=== PATIENT | female | born 1945 | race African-American/Black ===

== ENCOUNTER 2024-11-09 10:17 | Emergency (ER) | payer OTHER ==
[2024-11-09 10:59] LABS: #Basophils 0.03 10x3/uL (0.0-0.2); #Monocytes 0.39 10x3/uL (0.0-1.1); #Neutrophils 1.65 10x3/uL (1.5-8.4); %Basophils 0.6 % (0.0-2.0); %Eosinophils 4.2 % (0.0-6.0); %Lymphocytes 52.1 % (18.0-47.0); %Monocytes 8.2 % (0.0-10.0); %Neutrophils 34.7 % (40.0-75.0); Hematocrit 35.9 % (34.9-44.5); Hemoglobin 11.8 g/dL (12.0-15.5); Mean Corpuscular HGB CONC 32.9 g/dL (32.0-36.0); Mean Corpuscular Hemoglobin 29.5 pg (27.0-33.0); Mean Corpuscular Volume 89.8 fL (81.6-98.3); Mean Platelet Volume 9.9 fL (7.4-10.4); Platelet Count 236 10x3/uL (150-450); RBC Distribution Width 14.2 % (11.5-14.5); White Blood Cell (WBC) Count 4.76 10x3/uL (3.5-10.5)
[2024-11-09 11:26] LABS: ALT (SGPT) 14 U/L (Less than 34); AST (SGOT) 27 U/L (11-34); Albumin 3.9 g/dL (3.1-4.5); Alkaline Phosphatase 74 U/L (40-110); Anion Gap 11 mmol/L (10-20); BUN (Urea Nitrogen) 13 mg/dL (9.8-20.1); Bilirubin, Total 0.4 mg/dL (0.3-1.2); Calc. Creatinine Clearance 0 mL/min (70-130); Calcium 8.8 mg/dL (7.8-10.44); Carbon Dioxide 23 mmol/L (23-31); Chloride 111 mmol/L (98-107); Estimated GFR 48; Globulin 3.9 g/dL (2.4-3.5); Glucose 93 mg/dL (83-110); Potassium 3.9 mmol/L (3.5-5.1); Protein, Total 7.8 g/dL (5.8-8.1); Sodium 141 mmol/L (136-145)
[2024-11-09 11:29] LABS: Troponin I Less than 0.010 ng/mL (< 0.028)
[2024-11-09] MEDS ORDERED: Meclizine HCl 25 MG TAB ONE (13:03)
[2024-11-09] MEDS ORDERED: Acetaminophen 500 MG TAB ONE (13:03)
[2024-11-09 14:53] LABS: Bilirubin Neg (Negative); Blood, Urine Negative (Negative); Glucose, Urine (Dipstick) Normal (Negative); Ketone, Urine Negative (Negative); Leukocyte 500 (Negative); Nitrite Negative (Negative); Protein, Urine (Dipstick) 15 mg/dl (Neg-Trace); Specific Gravity, Urine 1.015 (1.005-1.030); Urobilinogen Normal mg/dL (Less than 2)
[2024-11-09 15:25] LABS: Clarity Hazy (Clear)
[2024-11-09 15:26] LABS: Other Microscopic Description Less than 2 mL rec'd
[2024-11-09 15:28] LABS: Bacteria/HPF 2+ HPF (None Seen); CAUTI Indications for Culture Pelvic or flank pain; RBC/HPF 0-3 HPF (0-3)
[2024-11-09 15:30] LABS: Mucous/LPF 1+ LPF (<2+)
[2024-11-09 15:33] LABS: Urine Culture Reflex No No
== END 2024-11-09 15:58 | disposition home or self-care (01) ==
LOC: CSHERS 10:17
DX: J06.9 Acute upper respiratory infection, unspecified (principal); N39.0 Urinary tract infection, site not specified; R42 Dizziness and giddiness; I10 Essential (primary) hypertension; E78.5 Hyperlipidemia, unspecified; K21.9 Gastro-esophageal reflux disease without esophagitis; F17.210 Nicotine dependence, cigarettes, uncomplicated
CPT/HCPCS: 36415; 71045; 80053; 81001; 84484; 85025; 87428; 93005; 99284